=== PATIENT | male | born 1960 | race Caucasian/White ===

== ENCOUNTER 2017-08-23 11:51 | Emergency (ER) | payer MEDICARE, MEDICAID ==
[2017-08-23 12:02] VITALS: BP 130/87
--- NOTE | 2017-08-23 12:29 | UC ---
Nausea/Vomiting/Diarrhea HPI - HPI Summary HPI Summary: 08/06 ate seafood at a [employer] restaurant. 08/07 Had cramping in his stomach, lower abdominal pain, and diarrhea. Ever since has had loose stools and "liquid " diarrhea at least 4 times a day, associated with lower abdominal pain and cramping. Still eating and drinking. Has not taken anything OTC. His blood sugar this morning was 139, which is good for him. Denies fever, chills, vomiting, nausea, blood in his stool, pain with urination, or hematuria. - History of Current Complaint Chief Complaint: UCGI Stated Complaint: GI COMPLAINT Time Seen by Provider: 08/23/17 12:27 Hx Obtained From: Patient Onset/Duration: Gradual Onset Severity Initially: Moderate Severity Currently: Severe Pain Intensity: 10 Pain Scale Used: 0-10 Numeric Location: Diffuse Character: Sharp, Cramping Aggravating Factor(s): Nothing Alleviating Factor(s): Nothing Nausea/Vomiting Presence: None Diarrhea Presence: Yes Diarrhea Frequency: Every 3-4 hours Diarrhea Duration: > 7 days - Allergies/Home Medications Allergies/Adverse Reactions: Allergies Allergy/AdvReac Type Severity Reaction Status Date / Time Penicillins [PCN] Allergy Unknown Unknown Verified 08/23/17 12:02 Reaction Details Bee Venom Allergy Swelling Verified 08/23/17 12:02 Home Medications: Home Medications Dulaglutide (NF) [Trulicity (NF)] 1.5 mg SUBCUT WEEKLY 08/23/17 [History Confirmed 08/23/17] PMH/Surg Hx/FS Hx/Imm Hx Endocrine History: Diabetes Cardiovascular History: Hypertension Respiratory History: COPD Other History Of: Anticoagulant Therapy Negative For: HIV, Hepatitis B, Hepatitis C - Surgical History Surgical History: Yes Surgery Procedure, Year, and Place: Appendectomy as a child. 1963 10/07 of Kidney removed - Family History Known Family History: Positive: Cardiac Disease, Diabetes Negative: Hypertension - Social History Alcohol Use: None Substance Use Type: None Smoking Status (MU): Light Every Day Tobacco Smoker Type: Cigarettes Amount Used/How Often: 1/2 PPD Length of Time of Smoking/Using Tobacco: 40+ YEARS Cessation Counseling: Counseled 3+Min - 10 Min - Immunization History Most Recent Tetanus Shot: UNKNOWN Review of Systems Constitutional: Negative Skin: Negative Eyes: Negative ENT: Negative Respiratory: Negative Cardiovascular: Negative Gastrointestinal: Abdominal Pain - RLQ and LLQ pain., Diarrhea Genitourinary: Negative Motor: Negative Neurovascular: Negative Psychological: Negative All Other Systems Reviewed And Are Negative: Yes Physical Exam Triage Information Reviewed: Yes Appearance: Well-Appearing, Well-Nourished Vital Signs: Initial Vital Signs Temp 98.1 F 08/23/17 11:57 Pulse 88 08/23/17 11:57 Resp 18 08/23/17 11:57 BP 130/87 08/23/17 11:57 Pulse Ox 97 08/23/17 11:57 Vital Signs Reviewed: Yes Neck: Positive: Supple, Nontender, No Lymphadenopathy Respiratory: Positive: Chest non-tender, Lungs clear, Normal breath sounds, No respiratory distress, No accessory muscle use Cardiovascular: Positive: RRR, No Murmur, Pulses Normal Abdomen Description: Positive: No Organomegaly, Soft, Other: - TTP RLQ and LLQ. Rebound tenderness RLQ.. Negative: Bruit, CVA Tenderness (R), CVA Tenderness (L ), Distended, Hernia @, Pulsatile Mass, Splenomegaly Bowel Sounds: Positive: Present Musculoskeletal: Positive: Strength Intact, ROM Intact, No Edema Neurological: Positive: Alert, Muscle Tone Normal Psychological: Positive: Age Appropriate Behavior Skin: Negative: rashes, significant lesion(s) Naus/Vom/Diarrhea Course/Dx - Course Course Of Treatment: Case discussed with Dr. Juárez, whom also examined the pt. Due to length of diarrhea and degree of pain in lower abdomen on exam - advised to seek further evaluation in the ED for CT and labwork. Pt agreed and will go by personal vehicle. Diverticulitis vs. Colitis vs. Parasite - Differential Dx/Diagnosis Differential Diagnoses - Male: Diverticulitis, Urinary Tract Infection, Diarrhea , Colitis, Dehydration Provider Diagnoses: Diarrhea. RLQ abdominal pain Condition At Discharge: Stable Discharge - Discharge Plan Condition: Stable Disposition: HOME Referrals: Kristen Ruano MD [Primary Care Provider] - Additional Instructions: Discussed need for advanced imaging such as a CT scan and blood work - Please report to ED for further evaluation. Pt chose to go by personal vehicle - this is agreeable to me.
== END 2017-08-23 13:00 | disposition home or self-care (01) ==
LOC: UCEAST 11:51
DX: R19.7 Diarrhea, unspecified (principal); R10.31 Right lower quadrant pain; Z72.0 Tobacco use; E11.9 Type 2 diabetes mellitus without complications
CPT/HCPCS: 81003; 87086; 99212; G0463

== ENCOUNTER 2017-08-23 13:28 | Emergency (ER) | payer MEDICARE, MEDICAID ==
[2017-08-23] MEDS ORDERED: Ondansetron INJ* 2 MG/ML VIAL IV ONE (14:38)
[2017-08-23] MEDS ORDERED: Morphine INJ* 4 MG/ML 1 ML CARPUJECT IV ONE (14:38)
--- NOTE | 2017-08-23 14:44 | ED ---
Abdominal Pain/Male - HPI Summary HPI Summary: Pt here RLQ - sent from [facility]. H/o diarrhea x 2 weeks. This started after eating [employer] food - thinks he got some bad seafood. Eating/drinking triggers diarrhea - does not exacerbate pain. Had mild nausea this morning - resolved now and no vomiting - has not vomited over the course of sx. He has been drinking water, coffee (admits he drinks alot of coffee), and eating sandwiches mostly. Smokes. Other than appendectomy "years ago", no previous ab issues. He is also s/p partial nephrectomy as a child d/t trauma - functions well. Denies hematochezia, melena. Still urinating but is less than usual and denies dysuria , urinary urgency/frequency/flank pain. No known h/o diverticulosis/-itis. He has never had a colonoscopy. Takes ASA 81mg daily but otherwise no ibuprofen/ naproxe. Last ate last night. Has DM and takes metformin which triggers diarrhea when he doesn't eat (has been eating). Also reports use of lantus and victoza - started victoza 1 month ago - seems to be working well at better controlling his glucose levels. - History of Current Complaint Chief Complaint: EDAbdPain Stated Complaint: NAUSEA/STOMACH CRAMPS 2 WEEKS-SENT [facility] Time Seen by Provider: 08/23/17 14:21 Hx Obtained From: Patient Pain Intensity: 9 - Allergies/Home Medications Allergies/Adverse Reactions: Allergies Allergy/AdvReac Type Severity Reaction Status Date / Time Penicillins [PCN] Allergy Unknown Unknown Verified 08/23/17 12:02 Reaction Details Bee Venom Allergy Swelling Verified 08/23/17 12:02 PMH/Surg Hx/FS Hx/Imm Hx Previously Healthy: Yes Endocrine/Hematology History: Reports: Hx Diabetes - type 2 dm - metformin, lantus and victoza Denies: Hx Anticoagulant Therapy - ASA 81 mg daily, Hx Thyroid Disease Cardiovascular History: Reports: Hx Hypercholesterolemia - takes meds, Hx Hypertension Denies: Hx Congestive Heart Failure, Hx Deep Vein Thrombosis, Hx Myocardial Infarction, Hx Pacemaker/ICD Respiratory History: Reports: Other Respiratory Problems/Disorders - HX OF LEFT LUNG COLLAPSE 3-4 YEARS AGO Denies: Hx Asthma, Hx Chronic Obstructive Pulmonary Disease (COPD), Hx Lung Cancer GI History: Denies: Hx Cirrhosis, Hx Crohn's Disease, Hx Diverticulosis, Hx Gall Bladder Disease, Hx Gastrointestinal Bleed, Hx Hiatal Hernia, Hx Irritable Bowel, Hx Jaundice, Hx Obstructive Bowel, Hx Ulcer, Hx Urosepsis History: Reports: Hx Renal Disease - 1/2 kidney on right side - partial Rt nephrectomy d/t trauma as a child Denies: Hx Kidney Stones Neurological History: Denies: Hx Dementia, Hx Migraine, Hx Seizures, Hx Transient Ischemic Attacks (TIA) Psychiatric History: Reports: Hx Depression Denies: Hx Anxiety, Hx Schizophrenia, Hx Bipolar Disorder - Surgical History Surgery Procedure, Year, and Place: Appendectomy as a child. 1963 2 of Kidney removed d/t trauma Infectious Disease History: No Infectious Disease History: Denies: Hx Hepatitis, Hx Human Immunodeficiency Virus (HIV), History Other Infectious Disease, Traveled Outside the [place] in Last 30 Days - Family History Known Family History: Positive: Cardiac Disease, Diabetes Negative: Hypertension - Social History Occupation: Unemployed Lives: With Family Alcohol Use: None Hx Substance Use: Yes Substance Use Type: Reports: Excessive Caffeine - "lots of coffee" Hx Tobacco Use: Yes Smoking Status (MU): Current Every Day Smoker Type: Cigarettes Amount Used/How Often: 1/2 PPD Length of Time of Smoking/Using Tobacco: 40+ YEARS Review of Systems Constitutional: Negative Negative: Fever, Chills Cardiovascular: Negative Respiratory: Negative Positive: Abdominal Pain, Diarrhea. Negative: Vomiting Genitourinary: Negative Musculoskeletal: Negative Skin: Negative Positive: Headache - this morning. Negative: Weakness, Paresthesia, Numbness, Syncope, Slurred Speech Psychological: Normal All Other Systems Reviewed And Are Negative: Yes Physical Exam Triage Information Reviewed: Yes Vital Signs On Initial Exam: Initial Vitals Temp Pulse Resp BP Pulse Ox 97.0 F 76 18 123/93 99 08/23/17 13:33 08/23/17 13:33 08/23/17 13:33 08/23/17 13:33 08/23/17 13:33 Vital Signs Reviewed: Yes Appearance: Positive: Well-Appearing, Well-Nourished, Pain Distress - mild - some gaurding during HPI but initially does not appear to be in acute pain - see AB exam for details Skin: Positive: Warm, Dry - no ecchymosis over ab/flank Head/Face: Positive: Normal Head/Face Inspection Eyes: Positive: Normal, EOMI, Conjunctiva Clear - anicteric sclera ENT: Positive: Hearing grossly normal, Pharynx normal - mucosa moist Dental: Positive: Other - edentulous Neck: Positive: Supple, Nontender Respiratory/Lung Sounds: Positive: Clear to Auscultation, Other - distant breath sounds - does admit to cough Cardiovascular: Positive: Normal, RRR, S1, S2. Negative: Murmur, Rub, Leg Edema Left, Leg Edema Right Abdomen Description: Positive: No Organomegaly, Soft, McBurney's Point Tenderness - rebounding; + Rovsing, Other:. Negative: CVA Tenderness (R), CVA Tenderness (L), Distended, Guarding, Hernia @, Pulsatile Mass, Splenomegaly Bowel Sounds: Positive: Present Male Genital Exam: Positive: normal genitalia, no hernia. Negative: epididymal tenderness, erythema, hernia mass, inguinal tenderness, lesions, scrotum tenderness (R), scrotum tenderness (L), testicular tenderness (R), testicular tenderness (L), urethral discharge Musculoskeletal: Positive: Normal, Strength/ROM Intact Neurological: Positive: Normal, Sensory/Motor Intact, Alert, Oriented to Person Place, Time, CN Intact II-III Psychiatric: Positive: Normal - [place] Coma Scale Coma Scale Total: 15 Diagnostics - Vital Signs Vital Signs Temp Pulse Resp BP Pulse Ox 08/23/17 14:15 73 120/87 99 08/23/17 14:14 72 99 08/23/17 13:33 97.0 F 76 18 123/93 99 - Laboratory Result Diagrams: 08/23/17 14:38 08/23/17 14:38 Lab Statement: Any lab studies that have been ordered have been reviewed, and results considered in the medical decision making process. Re-Evaluation - Re-Evaluation First Eval Change: Improved - pain resolved at rest and with palpation after resting, morphine IV and IVF Abdominal Pain Fem Course/Dx - Diagnoses Provider Diagnoses: Right lower quadrant abdominal pain Discharge - Discharge Plan Condition: Stable Disposition: HOME Patient Education Materials: Abdominal Pain (ED) Referrals: Kristen Ruano MD [Primary Care Provider] - Additional Instructions: You may have passed a kidney stone however it is important that you follow-up with your PCP regarding CT results as the findings may represent a stone or possibly a nodule of the bladder or soft tissue. Call Friday to schedule an appointment. If pain worsens in the meantime or you develop vomiting, fever, chills, bloody stools, return to ED.
[2017-08-23] MEDS ORDERED: NS 0.9% 1000 ML* 1,000 ML IV ONE (14:45)
[2017-08-23 14:51] LABS: Hematocrit 48 % (42-52); Hemoglobin 16.3 g/dl (14.0-18.0); Mean Corpuscular HGB Conc 34 g/dl (31-36); Mean Corpuscular Hemoglobin 31 pg (27-31); Mean Corpuscular Volume 90 fL (80-94); Mean Platelet Volume 9 um3 (7.4-10.4); Red Cell Distribution Width 14 % (10.5-15); White Blood Count 11.9 10^3/ul (3.5-10.8)
[2017-08-23 15:09] LABS: Albumin 4.4 g/dL (3.2-5.2); BUN/Creatinine Ratio 12.2 (8-20); C Reactive Protein 4.33 mg/L (< 5.00); Calcium 9.1 mg/dL (8.6-10.3); EGFR Non-African American 78.6 (>60); Globulin 2.6 g/dL (2-4); Magnesium 1.9 mg/dL (1.9-2.7); Potassium 3.9 mmol/L (3.5-5.0); Total Bilirubin 0.6 mg/dL (0.2-1.0)
[2017-08-23] MEDS ORDERED: Iodixanol* (CONTRAST) 320 MG/ML 100 ML SDV IV ONE (16:28)
--- NOTE | 2017-08-23 16:38 | RAD ---
INDICATION: Chronic cough in a smoker. Requisition notes history of "lung collapse" 10 years earlier. COMPARISON: Chest x-ray dated January 10, 2013 TECHNIQUE: PA and lateral views of the chest were obtained. FINDINGS: The heart and mediastinum are normal in size and contour. Overlying the lower posterior right lower lobe is a questionable area of infiltrate at best depicted on the lateral view chest x-ray. The lungs are otherwise grossly clear. There is no evidence of large pleural effusion. Visualized bones are normal for the patient's age. There is no radiographic evidence of free air beneath the diaphragm IMPRESSION: POSSIBLE INFILTRATE INVOLVING THE RIGHT LOWER LOBE. FOLLOW-UP CHEST X-RAY AFTER AN APPROPRIATE COURSE OF THERAPY IS ADVISED TO ASCERTAIN RESOLUTION AND/OR STABILITY.
[2017-08-23 17:02] LABS: Urine Bilirubin Negative (Negative); Urine Glucose Negative (Negative); Urine Nitrite Negative (Negative)
--- NOTE | 2017-08-23 18:21 | RAD ---
CLINICAL HISTORY: Right lower quadrant pain and diarrhea x2 weeks. Surgical history includes appendectomy and partial right nephrectomy secondary to trauma. COMPARISON: None TECHNIQUE: Contrast enhanced CT examination of the abdomen and pelvis from the lung bases through the initial tuberosities. The patient received 132 mL Visipaque 320 intravenously prior to imaging.The patient received oral contrast as well prior to imaging. FINDINGS: VISUALIZED LUNG BASES: There are hypoventilatory changes at the bilateral lung bases. Otherwise the visualized lung bases are grossly clear. There is no pleural effusion. ABDOMEN AND PELVIS: In the left lobe of the liver there is a low attenuation 6 mm focus. The liver is otherwise homogenous in attenuation and the surface is smooth. The spleen, pancreas and adrenal glands are grossly normal in appearance. The gallbladder is normal. The left kidney is normal in appearance without focal mass, calcification or signs of hydronephrosis. The patient is status post partial right nephrectomy. The kidney is otherwise normal in appearance. At the base of the urinary bladder there is an ill-defined 1.3 cm hypodense focus (axial image 83 and sagittal image 74). Neural contrast has only progressed as far as the midpoint of the small bowel which somewhat limits evaluation of the more distal small bowel and colon. Consistent with the patient's surgical history, the appendix is not seen. There are scattered distal colonic diverticula but none exhibit focal inflammatory change. The small and large bowel are not distended. The patient's normal appendix is identified in the right lower quadrant. There is no gross retroperitoneal or mesenteric lymphadenopathy. The pelvic viscera is normal in appearance. The mildly calcified abdominal aorta and iliac arteries are normal in course and diameter. Degenerative changes include multilevel loss of intervertebral disc height involving the lower thoracic and lumbar spine.There are no sinister bone lesions. IMPRESSION: 1. There is no acute inflammatory change or signs of obstruction involving the gastrointestinal tract. 2. At the base of the urinary bladder there is an ill-defined hyperattenuating focus measuring 1.3 cm in this possibly could represent a stone in the lumen of the urinary bladder, a nodule of the urinary bladder wall or a soft tissue nodule extending from the otherwise normal size prostate gland. According to the patient's clinical presentation further characterization could either be made with ultrasound of the urinary bladder on a nonemergent basis or direct cystoscopy. 3. Additional chronic, degenerative and iatrogenic findings described in the body the report.
[2017-08-23 19:19] VITALS: BP 124/48
== END 2017-08-23 19:19 | disposition home or self-care (01) ==
LOC: ED 13:28
DX: R10.31 Right lower quadrant pain (principal); R19.7 Diarrhea, unspecified; R51 Headache; F17.210 Nicotine dependence, cigarettes, uncomplicated
CPT/HCPCS: 36415; 71020; 74177; 80053; 81003; 82150; 83605; 83690; 83735; 85025; 86140; 96374; 96375; 99282; J2270; J2405; Q9967

== ENCOUNTER 2018-10-12 21:25 | Emergency (ER) | payer MEDICARE, MEDICAID ==
[2018-10-12] MEDS ORDERED: LORazepam TAB(*) 1 MG PO ONE (21:50)
--- NOTE | 2018-10-12 21:57 | ED ---
Syncope/Near Syncope - HPI Summary HPI Summary: 58-year-old male presents with presyncope today. He states that a month ago. He states that today someone called him and told him that he cheated on his . He became emotionally distressed and collapsed to the floor. He states he did not loss consciousness. he states he felt like he was going to pass out but did not. He denies any chest pain. He states he felt like he could not catch his breath but that has resolved. He states he landed on his left hip and his right shoulder. He is complaining of pain in this area. He denies any dizziness. No headache. No weakness. He is able to ambulate. He states he has history of anger outbursts. he states he did feel SI but no plan. he is not suicidal anymore he states it was more of an anger reaction. he states just feels anxious. denies any previous fractures to area. no numbness or tingling. he is right handed. - History Of Current Complaint Chief Complaint: EDSyncope Time Seen by Provider: 10/12/18 21:43 - Allergies/Home Medications Allergies/Adverse Reactions: Allergies Allergy/AdvReac Type Severity Reaction Status Date / Time Penicillins Allergy Unknown Unknown Verified 10/12/18 21:44 Reaction Details bee venom protein (honey bee) Allergy Swelling Verified 10/12/18 21:44 PMH/Surg Hx/FS Hx/Imm Hx Endocrine/Hematology History: Reports: Hx Diabetes - type 2 dm - metformin, lantus and victoza Denies: Hx Anticoagulant Therapy - ASA 81 mg daily, Hx Thyroid Disease Cardiovascular History: Reports: Hx Hypercholesterolemia - takes meds, Hx Hypertension Denies: Hx Congestive Heart Failure, Hx Deep Vein Thrombosis, Hx Myocardial Infarction, Hx Pacemaker/ICD Respiratory History: Reports: Other Respiratory Problems/Disorders - HX OF LEFT LUNG COLLAPSE 3-4 YEARS AGO Denies: Hx Asthma, Hx Chronic Obstructive Pulmonary Disease (COPD), Hx Lung Cancer GI History: Denies: Hx Cirrhosis, Hx Crohn's Disease, Hx Diverticulosis, Hx Gall Bladder Disease, Hx Gastrointestinal Bleed, Hx Hiatal Hernia, Hx Irritable Bowel, Hx Jaundice, Hx Obstructive Bowel, Hx Ulcer, Hx Urosepsis History: Reports: Hx Renal Disease - 1/2 kidney on right side - partial Rt nephrectomy d/t trauma as a child Denies: Hx Kidney Stones Neurological History: Denies: Hx Dementia, Hx Migraine, Hx Seizures, Hx Transient Ischemic Attacks (TIA) Psychiatric History: Reports: Hx Depression Denies: Hx Anxiety, Hx Schizophrenia, Hx Bipolar Disorder - Surgical History Surgery Procedure, Year, and Place: Appendectomy as a child. 1963 1/2 of Kidney removed d/t trauma Infectious Disease History: No Infectious Disease History: Denies: Hx Hepatitis, Hx Human Immunodeficiency Virus (HIV), History Other Infectious Disease, Traveled Outside the [place] in Last 30 Days - Family History Known Family History: Positive: Cardiac Disease, Diabetes Negative: Hypertension - Social History Alcohol Use: None Hx Substance Use: Yes Substance Use Type: Reports: None Hx Tobacco Use: Yes Smoking Status (MU): Heavy Every Day Tobacco Smoker Type: Cigarettes Amount Used/How Often: 1/2 PPD Length of Time of Smoking/Using Tobacco: 40+ YEARS Review of Systems Negative: Fever Negative: Chest Pain Negative: Shortness Of Breath Positive: Myalgia - left hip and right shoulder pain Positive: Syncope Positive: Depressed All Other Systems Reviewed And Are Negative: Yes Physical Exam Triage Information Reviewed: Yes Vital Signs On Initial Exam: Initial Vitals Temp Pulse Resp BP Pulse Ox 98.9 F 86 20 121/88 98 10/12/18 21:26 10/12/18 21:26 10/12/18 21:26 10/12/18 21:26 10/12/18 21:26 Vital Signs Reviewed: Yes Appearance: Positive: Well-Appearing Skin: Positive: Warm, Dry Head/Face: Positive: Normal Head/Face Inspection Eyes: Positive: Normal, EOMI, LUL, Conjunctiva Clear ENT: Positive: Normal ENT inspection, Pharynx normal, TMs normal Neck: Positive: Other: - nontender neck Respiratory/Lung Sounds: Positive: Clear to Auscultation, Breath Sounds Present , Other - nontender chest wall Cardiovascular: Positive: Normal, RRR Abdomen Description: Positive: Nontender, Soft Bowel Sounds: Positive: Present Musculoskeletal: Positive: Strength/ROM Intact - left hip and right shoulder with pain, Other - tenderness left hip, tenderness right shoulder, clavicle and humerus, good pulses Neurological: Positive: Sensory/Motor Intact, Alert, Oriented to Person Place, Time, CN Intact II-III Psychiatric: Positive: Depressed Diagnostics - Vital Signs Vital Signs Temp Pulse Resp BP Pulse Ox 10/12/18 21:35 86 18 121/88 97 01/07/19 21:34 85 18 98 10/12/18 21:26 98.9 F 86 20 121/88 98 - Laboratory Result Diagrams: 10/12/18 22:05 10/12/18 22:05 Lab Statement: Any lab studies that have been ordered have been reviewed, and results considered in the medical decision making process. - Radiology shoulder, humerus, clavicle Radiology Interpretation Completed By: ED Physician Summary of Radiographic Findings: no fracture left hip and femur Radiology Interpretation Completed By: ED Physician Summary of Radiographic Findings: old avulsion fracture lesser tronchanter - EKG No standard instances Cardiac Rate: NL EKG Rhythm: Sinus Rhythm Summary of EKG Findings: sinus rhythm Re-Evaluation - Re-Evaluation First Eval Re-Evaluation Time: 23:00 Comment: explained results Second Eval Re-Evaluation Time: 23:05 Change: Improved Comment: sleeping, states no longer SI, states has calmed down Course/Dx Course Of Treatment: 58-year-old male presents with near syncope today. He got some news that was emotionally distressed and collapsed to the floor. He states he did not loss consciousness. He denies any chest pain. He states he felt like he could not catch his breath but that has resolved. He states he landed on his left hip and his right shoulder. He is complaining of pain in this area. He is able to ambulate. He states he has history of anger outbursts. he states he did feel SI but no plan. he states just feels anxious. on exam appears anxious. lungs CTA. tenderness right shoulder. tenderness left hip, full ROM hip. neurovascular intact. xray read by me and dr serna as old avulsion fracture of lesser tronchanter. patient able to ambulate so will not get CT. ekg sinus rhythm. lab work without any significant abnormality. troponin zero. d-dimer normal. gave ativan and patient feeling better. will get mental health exam. patient will be signed out to dr serna pending MHE - Diagnoses Differential Diagnosis/HQI/PQRI: Positive: Dysrhythmia, Hypoglycemia, Myocardial Infarction Provider Diagnoses: Pre-syncope, Left hip pain, Right arm pain Discharge - Sign-Out/Discharge Documenting (check all that apply): Sign-Out Patient Signing out patient TO: Sarah Serna - Discharge Plan Patient Education Materials: R.I.C.E. Treatment (ED), Near Syncope (ED) Referrals: Kristen Ruano MD [Primary Care Provider] - Additional Instructions: apply ice to area Take tyenlol as needed every 6 hours follow up with primary within 5 days Return to ED if develop any new or worsening symptoms
[2018-10-12 22:12] LABS: ABS Basophils 0.1 10^3/ul (0-0.2); ABS Eosinophils 0.3 10^3/ul (0-0.6); ABS Lymphocytes 3.6 10^3/ul (1.0-4.8); ABS Monocytes 0.8 10^3/ul (0-0.8); ABS Neutrophils 7.9 10^3/ul (1.5-7.7); ABS Nucleated RBC 0 10^3/ul; Eosinophil % 2.1 %; Hematocrit 45 % (42-52); Lymphocyte % 28.6 %; Mean Corpuscular HGB Conc 33 g/dl (31-36); Mean Corpuscular Hemoglobin 30 pg (27-31); Mean Corpuscular Volume 90 fL (80-94); Mean Platelet Volume 8.7 fL (7.4-10.4); Nucleated Red Blood Cells % 0.1; Platelet Count 215 10^3/ul (150-450); Red Blood Count 4.97 10^6/ul (4.00-5.40); Red Cell Distribution Width 15 % (10.5-15); White Blood Count 12.7 10^3/ul (3.5-10.8)
[2018-10-12 22:28] LABS: ALT 20 U/L (7-52); AST 16 U/L (13-39); Albumin/Globulin Ratio 1.5 (1-3); Alkaline Phosphatase 114 U/L (34-104); Anion Gap 7 mmol/L (2-11); Blood Urea Nitrogen 14 mg/dL (6-24); CO2 Carbon Dioxide 26 mmol/L (22-32); Calcium 9.1 mg/dL (8.6-10.3); Chloride 106 mmol/L (101-111); EGFR Non-African American 76.2 (>60); Globulin 2.7 g/dL (2-4); Glucose 198 mg/dL (70-100); Magnesium 1.8 mg/dL (1.9-2.7); Potassium 3.6 mmol/L (3.5-5.0); Sodium 139 mmol/L (135-145); Total Protein 6.7 g/dL (6.4-8.9)
[2018-10-12 22:48] LABS: Acetaminophen < 15 mcg/mL; Alcohol < 10 mg/dL (<10); Salicylate < 2.50 mg/dL (<30)
[2018-10-12 23:02] LABS: TSH (Thyroid Stimulating Horm) 2.74 mcIU/mL (0.34-5.60)
[2018-10-12 23:03] LABS: Barbiturates Urine Screen None Detected (None Detect); Benzodiazepine Urine Screen None Detected (None Detect); Urine Cannabinoids Screen None Detected (None Detect)
[2018-10-12 23:11] LABS: Urine Appearance Clear; Urine Bilirubin Negative (Negative); Urine Blood Negative (Negative); Urine Color Yellow; Urine Glucose 1+(50 mg/dL) (Negative); Urine Ketones Negative (Negative); Urine Nitrite Negative (Negative); Urine Protein Negative (Negative); Urine Urobilinogen Negative (Negative)
--- NOTE | 2018-10-13 03:31 | ED ---
Progress - Progress Note Progress Note: This patient was signed out from Nicole BARNETT awaiting MHE. - Consult/PCP Time Called: 23:07 Re-Evaluation - Re-Evaluation First Eval Re-Evaluation Time: 23:00 Comment: explained results Second Eval Re-Evaluation Time: 23:05 Change: Improved Comment: sleeping, states no longer SI, states has calmed down Course/Dx - Course Course Of Treatment: After a MHE by Dr. Davis the patient was deemed stable to be discharged home - Diagnoses Provider Diagnoses: Pre-syncope, Left hip pain, Right arm pain Discharge - Sign-Out/Discharge Documenting (check all that apply): Patient Departure, Receiving Sign-Out Receiving patient FROM: Nicole Jara - Discharge Plan Condition: Stable Disposition: HOME Patient Education Materials: Near Syncope (ED), R.I.C.E. Treatment (ED), Suicide Prevention (ED) Referrals: Kristen Ruano MD [Primary Care Provider] - Additional Instructions: apply ice to area Take tyenlol as needed every 6 hours follow up with primary within 5 days Return to ED if develop any new or worsening symptoms Per completion of a mental health evaluation, you are cleared for release and do not require inpatient psychiatric hospitalization at this time. Please go to nearest emergency room or call 911 if safety concerns arise or condition worsens. Important Phone Numbers: [facility]........... [phone] Suicide Prevention and Crisis Services........................ [phone] National Suicide Prevention Lifeline............................ [phone] (3839) [facility]....................... [phone] Alcoholics Anonymous............................................... [facility].............. [phone] [facility].............................................. - Attestation Statements Document Initiated by Scribe: Yes Documenting Scribe: Lev Rand Provider For Whom Dwayne is Documenting (Include Credential): Sarah Serna MD Scribe Attestation: ILev , scribed for Sarah Serna MD on 10/13/18 at 0403. Status of Scribe Document: Ready
[2018-10-13 03:55] VITALS: BP 115/72
== END 2018-10-13 03:56 | disposition home or self-care (01) ==
LOC: ED 21:25
DX: R55 Syncope and collapse (principal); M25.552 Pain in left hip; M79.601 Pain in right arm; E11.9 Type 2 diabetes mellitus without complications; Z88.0 Allergy status to penicillin
CPT/HCPCS: 36415; 80053; 80307; 80320; 80329; 81003; 83605; 83735; 84443; 84484; 85025; 85379; 93005; 99283; A9270-GY; G0480

== ENCOUNTER 2023-08-28 15:58 | Observation (INO) ==
[2023-08-28] MEDS ORDERED: Ondansetron 4 mg VIAL 2 MG/ML 2 ml VIAL IV ONE ×2 (16:26)
[2023-08-28] MEDS ORDERED: Lactated Ringers 1000 ml BAG 1,000 ML IV ONE ×2 (16:28→19:44)
[2023-08-28 16:52] LABS: ABS Basophils 0.1 10^3/uL (0.0-0.1); ABS Eosinophils 0.1 10^3/uL (0.0-0.5); ABS Lymphocytes 1.8 10^3/uL (1.0-4.8); ABS Monocytes 0.7 10^3/uL (0.0-1.1); ABS Neutrophils 7.8 10^3/uL (1.5-7.6); ABS Nucleated RBC 0.01 10^3/ul; Hematocrit 47.5 % (38-53); Hemoglobin 16.1 g/dL (13.2-16.3); Lymphocyte % 17.1 %; Mean Corpuscular Hemoglobin 30.4 pg (27-33); Mean Corpuscular Hgb Conc 33.9 g/dL (31-36); Mean Corpuscular Volume 89.6 fL (80-97); Mean Platelet Volume 8.9 fL (7.5-11.2); Nucleated Red Blood Cells % 0.1 %/100WBC (0.0-0.8); Platelet Count 245 10^3/uL (150-450); Red Cell Distribution Width 14.1 % (12-17); White Blood Count 10.7 10^3/uL (3.6-10.2)
[2023-08-28 17:07] LABS: Albumin 4.3 g/dL (3.2-5.2); Albumin/Globulin Ratio 1.8 (1-3); C Reactive Protein 5.24 mg/L (<8.01); Calcium 9.5 mg/dL (8.6-10.3); Creatinine, Serum 0.95 mg/dL (0.67-1.17); Globulin 2.4 g/dL (2-4); Magnesium 1.6 mg/dL (1.9-2.7); Potassium 3.9 mmol/L (3.5-5.0); Total Bilirubin 0.8 mg/dL (0.2-1.0); Total Protein 6.7 g/dL (6.4-8.9); eGFR CKD-EPI 89.4 (>60)
[2023-08-28 17:09] LABS: Urine Appearance Clear; Urine Bilirubin Negative (Negative); Urine Blood Negative (Negative); Urine Color Yellow; Urine Glucose 3+(>=500 mg/dL) (Negative); Urine Ketones 2+ (Negative); Urine Nitrite Negative (Negative); Urine Protein 1+(30 mg/dL) (Negative); Urine Specific Gravity 1.035 (1.002-1.030); Urine Urobilinogen Negative (Negative)
[2023-08-28] MEDS ORDERED: Prochlorperazine 5 mg/ml 2 ml VIAL (10 mg) IV ONE (17:18)
[2023-08-28] MEDS ORDERED: Iodixanol (CONTRAST) 320 MG/ML 100 ML SDV IV ONE (17:37)
[2023-08-28 18:07] LABS: Urine Bacteria Absent (Absent); Urine Red Blood Cell 1+(3-5/hpf) (Absent); Urine White Blood Cell Trace(0-5/hpf) (Absent)
[2023-08-28] MEDS ORDERED: Morphine 4 MG/ML VIAL (1 ml) IV ONE (18:47)
[2023-08-28] MEDS ORDERED: Droperidol 5 MG/2 ML 2 ML VIAL IV ONE ×2 (19:44)
[2023-08-28] MEDS ORDERED: Trimethobenzamide *IM* 100 mg/ml 2 ml VIAL (200 mg) IM ONE ×2 (20:36)
[2023-08-28] MEDS ORDERED: Magnesium Sulfate 2 gm BAG 2 GM/50 ML BAG IVPB ONE ×2 (21:19)
[2023-08-28] MEDS ORDERED: Ondansetron 4 mg VIAL 2 MG/ML 2 ml VIAL IV PRN (21:21)
[2023-08-28] MEDS ORDERED: Dextrose 50% Syringe 50 ml 25 GM/50 ML SYRINGE IV PUSH PRN (21:22)
[2023-08-28] MEDS ORDERED: NS 0.9% 1000 ml BAG 1,000 ML IV SCH (21:30)
[2023-08-28] MEDS: Nicotine PATCH 21 MG/24 HR PATCH TRANSDERM SCH (23:45)
[2023-08-29] MEDS: Nicotine PATCH 21 MG/24 HR PATCH TRANSDERM SCH (07:43)
[2023-08-29] MEDS ORDERED: Magnesium Hydroxide LIQ 30 ML UDC PO PRN (07:54)
[2023-08-29] MEDS ORDERED: Aspirin EC 81 mg TAB.EC (enteric coated) PO SCH (09:00)
[2023-08-29 10:16] LABS: ABS Eosinophils 0.3 10^3/uL (0.0-0.5); ABS Lymphocytes 2.8 10^3/uL (1.0-4.8); ABS Monocytes 1.3 10^3/uL (0.0-1.1); ABS Neutrophils 12.8 10^3/uL (1.5-7.6); Eosinophil % 1.5 %; Hematocrit 43.4 % (38-53); Hemoglobin 14.7 g/dL (13.2-16.3); Lymphocyte % 16.3 %; Mean Corpuscular Hemoglobin 30.3 pg (27-33); Mean Corpuscular Hgb Conc 33.9 g/dL (31-36); Mean Corpuscular Volume 89.3 fL (80-97); Mean Platelet Volume 8.3 fL (7.5-11.2); Platelet Count 241 10^3/uL (150-450); Red Blood Count 4.86 10^6/uL (4.06-5.63); White Blood Count 17.3 10^3/uL (3.6-10.2)
[2023-08-29 10:41] LABS: Calcium 8.9 mg/dL (8.6-10.3); Creatinine, Serum 0.94 mg/dL (0.67-1.17); Magnesium 1.9 mg/dL (1.9-2.7); Potassium 3.9 mmol/L (3.5-5.0); eGFR CKD-EPI 90.5 (>60)
[2023-08-29 14:19] VITALS: BP 114/69
[2023-08-29] MEDS ORDERED: Insulin GLARGINE 100 un/ml 10 ml VIAL SUBCUT SCH (21:00)
== END 2023-08-29 15:45 | disposition home or self-care (01) ==
LOC: EDHOLD 15:58 → ED 15:58 → SUATTDRO 21:39 → EDHOLD 08-29 00:23 → SSU 08-29 00:58
PROVIDERS: ADMIT Internal Medicine; ATTEND Hospitalist